=== PATIENT | female | born 2005 | race Two or more races ===

== ENCOUNTER 2024-12-09 17:11 | Emergency (ER) | payer OTHER ==
[~2024-12-09] VITALS: Ht 157.5 cm; Wt 46.7 kg
[2024-12-09] MEDS ORDERED: FAMOTIDINE/PF 20 MG/2 ML VIAL ONE (17:42)
[2024-12-09] MEDS ORDERED: ONDANSETRON HCL 2 MG/ML VIAL ONE (17:42)
[2024-12-09] MEDS ORDERED: ONDANSETRON HCL 2 MG/ML VIAL IV ONE (17:45)
[2024-12-09] MEDS ORDERED: FAMOtidine 10 MG/ML (4ML VIAL) IV ONE (17:45)
[2024-12-09] MEDS ORDERED: 0.9 % SODIUM CHLORIDE 500 ML IV ONE (17:45)
[2024-12-09 18:12] LABS: HEMATOCRIT 41.5 % (36.0-45.00); HEMOGLOBIN 14.2 g/dL (12.0-15.00); MEAN CELL VOLUME 82.2 fL (80.00-100.00); MEAN CORPUSCULAR HEMOGLOBIN 28.2 pg (27.00-32.0); MEAN CORPUSCULAR HGB CONC 34.3 g/dl (32.0-36.0); PLATELET COUNT 318 K/uL (150-450); RED BLOOD COUNT 5.05 M/uL (4.00-6.00); RED CELL DISTRIBUTION WIDTH 14.5 % (11.5-14.5)
[2024-12-09 19:08] LABS: AMYLASE 124 U/L (25-115); LIPASE 51 U/L (13-75)
[2024-12-09 19:17] LABS: HCG QUANTITATIVE 87587 mUI/mL (1-3)
[2024-12-09] MEDS ORDERED: ZOFRAN8 MG PO (19:23)
[2024-12-09] MEDS ORDERED: PEPCID AC20 MG PO (19:23)
== END 2024-12-09 20:01 | disposition home or self-care (01) ==
LOC: ER 17:13
PROVIDERS: General Practice
DX: R11.10 Vomiting, unspecified (principal); R10.9 Unspecified abdominal pain; Z3A.11 11 weeks gestation of pregnancy

== ENCOUNTER 2025-01-07 20:35 | Emergency (ER) | payer OTHER ==
[~2025-01-07] VITALS: Ht 157.5 cm; Wt 46.7 kg
[~2025-01-07 20:35] MED LIST: PEPCID AC20 MG PO; ZOFRAN8 MG PO
[2025-01-07] MEDS ORDERED: PRENATA CHEWAB1 EACH (20:52)
[2025-01-07 22:35] LABS: BASO % 0.3 % (0.1-1.2); EOS % 1.6 % (0.7-7.0); HEMATOCRIT 33.8 % (34.1-44.9); HEMOGLOBIN 11.4 g/dL (11.2-15.7); MEAN CORPUSCULAR HEMOGLOBIN 27.5 pg (25.6-32.2); MONO # 0.47 (0.24-0.82); MONO % 3.7 % (4.7-12.5); NEUT # 9.97 (1.56-6.13); PLATELET COUNT 268 K/uL (163-369); RED BLOOD COUNT 4.14 M/uL (3.93-5.22); RED CELL DISTRIBUTION WIDTH 14.3 % (11.6-14.4)
[2025-01-08 02:10] LABS: PH,URINE 6.5 (5.0-8.0); URINE APPEARANCE Clear; URINE BILIRRUBIN Negative (NEGATIVE); URINE BLOOD Negative; URINE COLOR Yellow; URINE GLUCOSE Negative (NEGATIVE); URINE KETONE Negative (NEGATIVE); URINE LEUKOCYTE Trace; URINE NITRATE Negative; URINE PROTEIN Negative (NEGATIVE); URINE UROBILINOGEN 0.2 E.U./dl
[2025-01-08 02:11] LABS: URINE BACTERIA 15.8 uL (0.0-1933); URINE EPITHELIAL CELLS 3.6 uL (0.0-38.8); URINE WBC 19.3 uL (0.0-23.2)
[2025-01-08 02:25] LABS: URINE RBC 0.5 uL (0.0-20.8)
== END 2025-01-08 00:50 | disposition home or self-care (01) ==
LOC: ER 21:03
PROVIDERS: General Practice
DX: O26.851 Spotting complicating pregnancy, first trimester (principal); Z3A.15 15 weeks gestation of pregnancy

== ENCOUNTER 2025-01-12 18:36 | Inpatient (IN) | payer OTHER ==
[~2025-01-12] VITALS: Ht 157.5 cm; Wt 47.6 kg
[~2025-01-12 18:36] MED LIST changes: +PRENATA CHEWAB1 EACH
--- NOTE | 2025-01-12 18:41 | NUR ---
SE RECIB EPTE ALERTA Y ORIENTADA LA CUAL REFIERE VENIR POR SANGRADO VAGINAL Y DOLOR PELVICO. PTE CON [address] FINLEY. SE MIDEN S/V A PTE Y SE UBICA.
[2025-01-12] MEDS ORDERED: ONDANSETRON HCL 2 MG/ML VIAL IV ONE (19:45)
[2025-01-12] MEDS ORDERED: ONDANSETRON HCL 2 MG/ML VIAL ONE (20:27)
[2025-01-12 20:46] LABS: BASO % 0.2 % (0.1-1.2); EOS % 0.6 % (0.7-7.0); HEMATOCRIT 32.9 % (34.1-44.9); HEMOGLOBIN 10.9 g/dL (11.2-15.7); LYMPH # 1.44 (1.18-3.74); LYMPH % 8.7 % (19.3-53.1); MEAN CORPUSCULAR HEMOGLOBIN 27.2 pg (25.6-32.2); MONO # 0.61 (0.24-0.82); MONO % 3.7 % (4.7-12.5); NEUT # 14.33 (1.56-6.13); NEUT % 86.3 % (34.0-71.1); PLATELET COUNT 247 K/uL (163-369); RED BLOOD COUNT 4.01 M/uL (3.93-5.22); RED CELL DISTRIBUTION WIDTH 14.5 % (11.6-14.4)
[2025-01-12] MEDS ORDERED: CEFAZOLIN SODIUM 1,000 MG in 0.9 % SODIUM CHLORIDE 50 ML IV SCH (21:58)
[2025-01-12] MEDS ORDERED: RINGERS SOLUTION,LACTATED 1,000 ML IV SCH (22:00)
[2025-01-12 23:14] LABS: PH,URINE 5.5 (5.0-8.0); URINE APPEARANCE Clear; URINE BILIRRUBIN Negative (NEGATIVE); URINE BLOOD Trace; URINE COLOR Yellow; URINE GLUCOSE Negative (NEGATIVE); URINE KETONE Negative (NEGATIVE); URINE LEUKOCYTE Small; URINE NITRATE Negative; URINE PROTEIN Negative (NEGATIVE); URINE UROBILINOGEN 0.2 E.U./dl
[2025-01-12 23:18] LABS: URINE BACTERIA 141.9 uL (0.0-1933); URINE EPITHELIAL CELLS 25.3 uL (0.0-38.8); URINE RBC 4.8 uL (0.0-20.8)
[2025-01-12 23:50] LABS: URINE CAST 0.29 uL (0.0-1.40)
[2025-01-13 02:34] VITALS: BP 106/64
[2025-01-13] MEDS ORDERED: OXYTOCIN 20 UNITS/1000ML RL PIGGYBAG IV ONE (02:56)
[2025-01-13] MEDS ORDERED: CHLORHEXIDINE GLUCONATE 120 ML BOTTLE TOP ONE ×2 (02:57→03:00)
[2025-01-13] MEDS ORDERED: OXYTOCIN 1,000 ML IV SCH (03:05)
[2025-01-13 03:35] LABS: PROTHROMBIN TIME 10.9 SECONDS (9.0-11.5)
[2025-01-13 03:40] LABS: ALBUMIN 3.2 gm/dL (3.4-5.0); BILIRUBIN TOTAL 0.16 mg/dL (0.3-1.2); CALCIUM 8.7 mg/dL (8.5-10.1); GFR 136.65; GLOBULINA 3.3 G/DL (2.4-3.5); POTASSIUM 3.88 mEq/L (3.5-5.1); TOTAL PROTEIN 6.5 gm/dL (6.4-8.2)
[2025-01-13 03:59] LABS: CREATININE SERUM 0.56 mg/dL (0.55-1.02)
[2025-01-13] MEDS ORDERED: AZITHROMYCIN 500 MG VIAL IV ONE (05:30)
[2025-01-13] MEDS ORDERED: POVIDONE-IODINE 118 ML BOTT TOP NR (05:30)
[2025-01-13] MEDS ORDERED: IBUPROFEN800 MG PO (05:45)
[2025-01-13 10:30] VITALS: BP 100/56; O2SAT 100
== END 2025-01-13 11:45 | disposition home or self-care (01) | DRG 779 ==
LOC: ER 18:42 → OB/GYN 23:05 → O/R 01-13 08:37
PROVIDERS: General Practice; ADMIT Specialist; ATTEND Specialist
PROC: BY4CZZZ Ultrasonography of Second Trimester, Single Fetus (ICD-10-PCS; 2025-01-12)
PROC: BU4CZZZ Ultrasonography of Uterus and Ovaries (ICD-10-PCS; 2025-01-12)
PROC: 3E033VJ Introduction of Other Hormone into Peripheral Vein, Percutaneous Approach (ICD-10-PCS; 2025-01-13)
PROC: 10D17Z9 Manual Extraction of Products of Conception, Retained, Via Natural or Artificial Opening (ICD-10-PCS; principal; 2025-01-13 07:00)
DX: O03.4 Incomplete spontaneous abortion without complication (principal); Z3A.16 16 weeks gestation of pregnancy